=== PATIENT | female | born 1970 | race Caucasian/White ===

== ENCOUNTER 2020-08-17 10:01 | Outpatient (CLI) | payer OTHER | END 2020-08-17 10:05 | disposition home or self-care (01) | LOC: SONOGRAMA 10:01 | PROVIDERS: ATTEND Pathology Anatomic Pathology & Clinical Pathology | DX: E04.8 Other specified nontoxic goiter (principal) ==

== ENCOUNTER 2020-11-19 08:13 | Outpatient (CLI) | payer OTHER | END 2020-11-19 08:24 | disposition home or self-care (01) | LOC: SONOGRAMA 08:13 | PROVIDERS: ATTEND Pathology Anatomic Pathology & Clinical Pathology | DX: E04.1 Nontoxic single thyroid nodule (principal) ==